=== PATIENT | female | born 1990 | race Caucasian/White ===

== ENCOUNTER 2019-06-27 11:37 | Emergency (ER) | payer OTHER, BC, SELFPAY ==
[2019-06-27 11:46] VITALS: BP 150/87; PULSE 142; RESP 20; TEMP 36.2; O2SAT 100
--- NOTE | 2019-06-27 12:24 | ED.SKABFB ---
HPI - Skin/Abscess/Foreign Bdy General Stated complaint: Cat bite Time Seen by Provider: 06/27/19 12:24 Source: patient and RN notes reviewed Mode of arrival: ambulatory Limitations: no limitations Related Data Allergies Allergy/AdvReac Type Severity Reaction Status Date / Time No Known Allergies Allergy Unverified 09/06/18 10:18 Review of Systems Review of Systems: All systems reviewed & are unremarkable except as noted in HPI and below PMFSH Comments At time of signature, agree with nursing past medical, surgical, social and family history. There is no relevant family history pertinent to the presenting complaint Course Course Emergency Course: Patient is aware of diagnosis, understands and agrees to treatment plan. Anticipatory guidance given. Patient agrees to follow-up as directed and is aware of reasons to seek care at the emergency department. Portions of this record may have been created with voice recognition software Vital Signs Vital signs: Vital Signs Temperature 97.1 F L 06/27/19 11:46 Pulse Rate 142 H 06/27/19 11:46 Respiratory Rate 20 06/27/19 11:46 Blood Pressure 150/87 H 06/27/19 11:46 Pulse Oximetry 100 06/27/19 11:46 Temperature 97.1 F L 06/27/19 11:46 Pulse Rate 142 H 06/27/19 11:46 Respiratory Rate 20 06/27/19 11:46 Blood Pressure 150/87 H 06/27/19 11:46 Pulse Oximetry 100 06/27/19 11:46 Reviewed. Critical Care Time Critical Care Time Critical Care Time: No Discharge Plan Discharge Additional Instructions: Clean wound twice daily with soap and water, use antibiotic ointment twice daily. Cover as necessary until wound heals. Take antibiotic as directed. If symptoms worsen or do not improve after 24 to 36 hours on antibiotic, follow-up with your primary care provider. If having urgent concerns please go the emergency room. Follow-up/Referrals: UNKNOWN,DOCTOR [Primary Care Provider] -
--- NOTE | 2019-06-27 12:26 | ED.ANIMALBIT ---
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 Reports cat was up-to-date on vaccinations. Reports puncture wound to the second digit of her right hand. Denies any erythema, drainage, induration. MD complaint: animal bite Related Data Allergies Allergy/AdvReac Type Severity Reaction Status Date / Time No Known Allergies Allergy Verified 06/27/19 12:31 Review of Systems Review of Systems: Narrative: CONSTITUTIONAL: Denies malaise, chills, sweats, or fever. CARDIOVASCULAR: Denies chest pain, palpitations, or edema. SKIN: Reports puncture wounds to second digit of right hand MUSCULOSKELETAL: Denies decreased range of motion, joint pain NEUROLOGIC: Denies numbness, weakness. All systems reviewed & are unremarkable except as noted in HPI and below PMFSH Comments At time of signature, agree with nursing past medical, surgical, social and family history. There is no relevant family history pertinent to the presenting complaint Exam Narrative: Exam Narrative: GENERAL: Well-appearing, well-nourished, and in no acute distress. HEAD: Normocephalic. EYES: PERRLA, conjunctivae clear NECK: Supple. CHEST: Speaks in full sentences. No respiratory distress. HEART: Regular rate and rhythm. Normal and equal peripheral pulses. EXTREMITIES: Right hand and digits of hand have normal strength and sensation. 5/5 strength with digit flexion, extension. Range of motion normal. No clubbing, cyanosis, or edema noted. No tenderness. Normal digital cascade with flexion of fingers, median, ulnar and radial nerve intact. Normal sensation of each side of finger. Can perform 'okay' sign, 'cross over finger test of index and middle fingers' and 'thumbs up' sign. No scissoring. Normal thumb opposition. Good capillary refill and radial pulse. Distal capillary refill <3 seconds. NEURO: Alert and oriented x3. 2 puncture wounds noted to the second digit of right hand, above the PIP joint PSYCH: Normal mood and affect Course Course Emergency Course: Patient is aware of diagnosis, understands and agrees to treatment plan. Anticipatory guidance given. Patient agrees to follow-up as directed and is aware of reasons to seek care at the emergency department. Portions of this record may have been created with voice recognition software Vital Signs Vital signs: Vital Signs Temperature 97.1 F L 06/27/19 11:46 Pulse Rate 142 H 06/27/19 11:46 Respiratory Rate 20 06/27/19 11:46 Blood Pressure 150/87 H 06/27/19 11:46 Pulse Oximetry 100 06/27/19 11:46 Temperature 97.1 F L 06/27/19 11:46 Pulse Rate 142 H 06/27/19 11:46 Respiratory Rate 20 06/27/19 11:46 Blood Pressure 150/87 H 06/27/19 11:46 Pulse Oximetry 100 06/27/19 11:46 Reviewed. Patient has been instructed to follow up with her primary care provider within the next week regarding her elevated blood pressure today. MDM - Animal Bite MDM Narrative Medical decision making narrative: Exam findings show no acute concerns or changes; patient is non-toxic appearing and is in no distress. Patient is appropriate for outpatient treatment and follow-up. Differential Diagnosis Differential diagnosis: Likely bite by animal, cat bite and rabies contact Critical Care Time Critical Care Time Critical Care Time: No Discharge Plan Discharge Clinical Impression: Cat bite of finger Qualifiers: Encounter type: initial encounter Qualified Code(s): S61.259A - Open bite of unspecified finger without damage to nail, initial encounter Patient Disposition: Home, Self-Care Condition: Stable Instructions: Antibiotic Form, Animal Bite (ED) Additional Instructions:
== END 2019-06-27 12:38 | disposition home or self-care (01) ==
PROVIDERS: Emergency Provider Nurse Practitioner
DX: S61.250A Open bite of right index finger without damage to nail, initial encounter (principal); R03.0 Elevated blood-pressure reading, without diagnosis of hypertension; W55.01XA Bitten by cat, initial encounter
CPT/HCPCS: 99213; G0463

== ENCOUNTER 2021-07-08 11:31 | Emergency (ER) | payer BC, SELFPAY ==
--- NOTE | 2021-07-08 11:35 | ED.URI ---
HPI - URI/Sore Throat General Chief Complaint: Upper Respiratory Infection Stated Complaint: cough fever Time Seen by Provider: 07/08/21 11:35 Source: patient and RN notes reviewed History of Present Illness HPI Narrative: Patient is a 30-year-old female who presents the urgent care with complaints of cough, fever, sore throat, congestion and chills and sweats with right ear pain. Patient states that started approximately 3 to 4 days ago and she has been taking DayQuil. Patient denies of any known exposures to COVID, strep or influenza but states that her coworkers have been in and out due to illness. No other acute complaints. No acute distress noted. Patient aware of the plan of care. Some parts of this dictation were generated by voice recognition software and may contain typographical and/or grammatical inaccuracies. Related Data Home Medications Medication Instructions Recorded Confirmed aripiprazole 15 mg tablet 1 tablet PO DAILY 07/08/21 07/08/21 budesonide-formoterol HFA 80 1 inh inhalation DAILY 07/08/21 07/08/21 mcg-4.5 mcg/actuation aerosol inhaler (Symbicort) bupropion HCl 150 mg 24 hr tablet, 1 tablet PO DAILY 07/08/21 07/08/21 extended release escitalopram oxalate 10 mg tablet 1 tablet PO HS 07/08/21 07/08/21 hydroxyzine pamoate 50 mg capsule 1 cap PO TID 07/08/21 07/08/21 norgestimate 0.25 mg-ethinyl 1 tablet PO DAILY 07/08/21 07/08/21 estradiol 35 mcg tablet (Estarylla) prazosin 1 mg capsule 5 cap PO DAILY 07/08/21 07/08/21 Allergies Allergy/AdvReac Type Severity Reaction Status Date / Time No Known Allergies Allergy Verified 07/08/21 11:48 Review of Systems Review of Systems: CONSTITUTIONAL: Reports of hot flashes and chills with fatigue EYES: Denies visual changes, redness, or discharge. ENT: Reports of sinus congestion, right otalgia, sore throat, postnasal drainage CARDIOVASCULAR: Denies chest pain, palpitations, or edema. RESPIRATORY: Reports of cough with intermittent wheezing without dyspnea GASTROINTESTINAL: Denies abdominal pain, nausea, vomiting, or diarrhea. GENITOURINARY: Denies dysuria or hematuria. SKIN: Denies rash or itching. MUSCULOSKELETAL: Denies back pain, joint pain, or myalgia. NEUROLOGIC: Denies headache, numbness, or weakness. All other systems reviewed are negative, except as documented in HPI. PMFSH Comments At the time of my signature, I reviewed and agree with the nursing past medical, surgical, social, and family history. There is no relevant family history pertinent to the patient complaint. Exam Narrative: GENERAL: This is a well-nourished, well-developed patient, in no apparent distress. HEAD: normocephalic, atraumatic. EYES: PERRL. Sclera clear/white. Vision is grossly intact. EARS: External ears normal, auditory canals clear and without drainage, mild bilateral effusions without otitis, TMs normal without perforation. Hearing grossly intact. NOSE: External nose normal with no obvious nasal discharge, nares without redness, clear to yellow rhinorrhea. THROAT: Mucous membranes moist, posterior pharynx clear. Moderate postnasal drainage NECK: Neck supple CARDIOVASCULAR: Regular rate and rhythm without murmurs, gallops, or rubs. RESPIRATORY: Inspiratory and expiratory wheezes SKIN: warm, intact with no suspicious lesions or rash, good texture and turgor. NEURO: awake, alert, and oriented to person, place and time. There were no obvious focal neurologic abnormalities. EXTREMITIES: No clubbing, cyanosis, or edema. Course Course Level of Care: Express Care Visit Vital Signs Vital signs: Vital Signs Temperature 98 F 07/08/21 11:37 Pulse Rate 100 07/08/21 11:37 Respiratory Rate 07/08/21 11:37 Blood Pressure 144/69 H 07/08/21 11:37 Pulse Oximetry 99 07/08/21 11:37 Oxygen Delivery Room Air 07/08/21 11:37 Temperature 98 F 07/08/21 11:37 Pulse Rate 100 07/08/21 11:37 Respiratory Rate 07/08/21 11:37 Blood Pressure 144/6
[2021-07-08 11:37] VITALS: BP 144/69; PULSE 100; RESP 20; TEMP 36.6; O2SAT 99
== END 2021-07-08 12:10 | disposition home or self-care (01) ==
PROVIDERS: Emergency Provider Nurse Practitioner Family
DX: B34.9 Viral infection, unspecified (principal); R06.2 Wheezing; Z20.822 Contact with and (suspected) exposure to COVID-19; F41.9 Anxiety disorder, unspecified; F32.A Depression, unspecified
CPT/HCPCS: 87426; 87804; 99213; C9803; G0463

== ENCOUNTER 2022-06-01 12:44 | Emergency (ER) | payer BC, SELFPAY ==
[2022-06-01 12:48] VITALS: BP 126/70; PULSE 71; RESP 20; TEMP 36.6; O2SAT 97
--- NOTE | 2022-06-01 12:58 | ED.GENADULT ---
HPI - General Adult General Chief complaint: Nausea/Vomiting/Diarrhea Stated complaint: nausea diarrhea Time Seen by Provider: 06/01/22 12:58 Source: patient, RN notes reviewed and old records reviewed Mode of arrival: ambulatory Limitations: no limitations History of Present Illness HPI narrative: 31 year old female who presents to [facility] care with complaints of awakening this morning and developing nausea with vomiting with emesis X4 prior to arrival in clinic and diarrhea stool X1. Patient has some mild mid abdominal discomfort, aching that comes in waves. Patient reports no fevers, chills or sweats and denies any body aches. Patient denies any known ill contacts. Patient has drank some water and has kept fluids down has not eaten any solid foods. MD complaint: nausea and vomiting diarrhea starting today. Onset (ago): hour(s) (this morning) Location: abdomen (mid abdomen) Severity: mild Severity scale (1-10): 3 Pain Consistency: intermittent Treatments prior to arrival: none Related Data Home Medications Medication Instructions Recorded Confirmed aripiprazole 15 mg tablet 1 tablet PO DAILY 07/08/21 06/01/22 budesonide-formoterol HFA 80 1 inh inhalation DAILY 07/08/21 06/01/22 mcg-4.5 mcg/actuation aerosol inhaler (Symbicort) bupropion HCl 150 mg 24 hr tablet, 1 tablet PO DAILY 07/08/21 06/01/22 extended release escitalopram oxalate 10 mg tablet 1 tablet PO HS 07/08/21 06/01/22 hydroxyzine pamoate 50 mg capsule 1 cap PO TID 07/08/21 06/01/22 norgestimate 0.25 mg-ethinyl 1 tablet PO DAILY 07/08/21 06/01/22 estradiol 35 mcg tablet (Estarylla) prazosin 1 mg capsule 5 cap PO DAILY 07/08/21 06/01/22 Allergies Allergy/AdvReac Type Severity Reaction Status Date / Time No Known Allergies Allergy Verified 07/08/21 11:48 Review of Systems Review of Systems: CONSTITUTIONAL: Denies fever, chills, or sweats. EYES: Denies visual changes, redness, or discharge. ENT: Denies rhinorrhea, congestion, sore throat, or otalgia. CARDIOVASCULAR: Denies chest pain, palpitations, or edema. RESPIRATORY: Denies cough or dyspnea. GASTROINTESTINAL: Denies any acute abdominal pain,positive for nausea, vomiting, or diarrhea. GENITOURINARY: Denies dysuria or hematuria. SKIN: Denies rash or itching. MUSCULOSKELETAL: Denies back pain, joint pain, or myalgia. NEUROLOGIC: Denies headache, numbness, or weakness. PSYCHIATRIC: Positive for history of anxiety or depression. All systems reviewed & are unremarkable except as noted in HPI and below PMFSH Past Medical History Medical History (Updated 06/02/22 @ 15:40 by Cynthia Ledesma NP) Ankle fracture, right Anxiety and depression Asthma Bipolar 1 disorder, mixed Eczema Fracture of left wrist Pneumonia 04/2016 Surgical History Surgical History (Updated 06/02/22 @ 15:37 by Cynthia Ledesma NP) H/O arthroscopic knee surgery History of tonsillectomy Social History Social History (Updated 06/02/22 @ 15:41 by Cynthia Ledesma NP) Smoking status: Former smoker Additional smoking assessment comments: quit 2018 smoked 3 years Alcohol intake: current Alcohol use details: rare social Substance use: current Substance use type: marijuana Gender identity (if verbalized by the patient): Female Comments At time of signature, agree with nursing past medical, surgical, social and family history. There is no relevant family history pertinent to the presenting complaint Exam Narrative: GENERAL: Well-appearing, well-nourished, and in no acute distress. HEAD: Normocephalic, atraumatic. EYES: PERRLA and EOMI. ENT: Nares clear, no rhinorrhea or epistaxis. Mucous membranes moist.TM's normal with good light reflex, throat pink with no swelling NECK: Supple.no lymphadenopathy CHEST: Clear to auscultation. No respiratory distress.SAO2 97% on room air HEART: Regular rate and rhythm. No murmur heard. Normal peripheral pulses. ABDOMEN: Soft, nontender on palpation, no McBu
== END 2022-06-01 13:19 | disposition home or self-care (01) ==
PROVIDERS: Emergency Provider Registered Nurse
DX: K52.9 Noninfective gastroenteritis and colitis, unspecified (principal); Z87.891 Personal history of nicotine dependence; J45.909 Unspecified asthma, uncomplicated; F41.9 Anxiety disorder, unspecified; F32.A Depression, unspecified
CPT/HCPCS: 99213; G0463

== ENCOUNTER 2022-06-20 11:51 | Emergency (ER) | payer BC, SELFPAY ==
--- NOTE | 2022-06-20 11:57 | ED.HA ---
HPI - Headache General Chief Complaint: Headache Stated Complaint: Headache Source: patient and RN notes reviewed History of Present Illness HPI Narrative: 31-year-old female presents to urgent care complaints of a migraine. Patient states she woke up with this migraine and feels like a typical migraine for her. States her migraine is located behind her eyes bilaterally. Patient reports associated photophobia as well as mild nausea. Patient states she took 800 mg of ibuprofen this morning which took her headache pain down to a 4/10 on the pain scale from an 8 out of 10. Patient denies any fevers, chills, numbness, tingling neck pain, vomiting, chest pain, or sound sensitivity. Patient noted to be wheezing on exam states is normal for her. Patient agrees to take her inhaler when she gets home. Related Data Home Medications Medication Instructions Recorded Confirmed aripiprazole 15 mg tablet 1 tablet PO DAILY 07/08/21 06/20/22 bupropion HCl 150 mg 24 hr tablet, 1 tablet PO DAILY 07/08/21 06/20/22 extended release escitalopram oxalate 10 mg tablet 1 tablet PO HS 07/08/21 06/20/22 hydroxyzine pamoate 50 mg capsule 1 cap PO TID 07/08/21 06/20/22 prazosin 1 mg capsule 5 cap PO DAILY 07/08/21 06/20/22 Allergies Allergy/AdvReac Type Severity Reaction Status Date / Time No Known Allergies Allergy Verified 07/08/21 11:48 Review of Systems Review of Systems: Pertinent positives and pertinent negatives per HPI. [facility] Past Medical History Medical History (Updated 06/20/22 @ 12:07 by Iris Chew APRN) Ankle fracture, right Anxiety and depression Asthma Bipolar 1 disorder, mixed Eczema Fracture of left wrist Pneumonia 04/2016 Surgical History Surgical History (Updated 06/02/22 @ 15:37 by Cynthia Ledesma NP) H/O arthroscopic knee surgery History of tonsillectomy Social History Social History (Updated 06/02/22 @ 15:41 by Cynthia Ledesma NP) Smoking status: Former smoker Additional smoking assessment comments: quit 2018 smoked 3 years Alcohol intake: current Alcohol use details: rare social Substance use: current Substance use type: marijuana Gender identity (if verbalized by the patient): Female Comments At the time of my signature, I reviewed and agree with the nursing past medical, surgical, social, and family history. There is no relevant family history pertinent to the patient complaint. Exam Narrative: GENERAL: This is a well-nourished, well-developed patient, in no apparent distress. HEAD: normocephalic, atraumatic. EYES: Sclera clear/white. Vision is grossly intact. EARS: External ears normal, auditory canals clear and without drainage. Hearing grossly intact. NOSE: External nose normal with no obvious nasal discharge, nares without redness, no rhinorrhea. THROAT: Mucous membranes moist, posterior pharynx clear. NECK: Neck supple, non-tender without lymphadenopathy, masses or thyromegaly. CARDIOVASCULAR: Regular rate and rhythm without murmurs, gallops, or rubs. RESPIRATORY: Mild wheezing throughout auscultation. Patient states is normal for her. SKIN: warm, intact with no suspicious lesions or rash, good texture and turgor. NEURO: awake, alert, and oriented to person, place and time. There were no obvious focal neurologic abnormalities. Course Course Level of Care: Express Care Visit Vital Signs Vital signs: Vital Signs Temperature 97.3 F L 06/20/22 11:58 Pulse Rate 92 06/20/22 11:58 Respiratory Rate 20 06/20/22 11:58 Blood Pressure 134/60 06/20/22 11:58 Pulse Oximetry 97 06/20/22 11:58 Oxygen Delivery Room Air 06/20/22 11:58 Temperature 97.3 F L 06/20/22 11:58 Pulse Rate 92 06/20/22 11:58 Respiratory Rate 20 06/20/22 11:58 Blood Pressure 134/60 06/20/22 11:58 Pulse Oximetry 97 06/20/22 11:58 Oxygen Delivery Room Air 06/20/22 11:58 reviewed MDM - Headache MDM Narrative Medical decision making narrative:
[2022-06-20 11:58] VITALS: BP 134/60; PULSE 92; RESP 20; TEMP 36.3; O2SAT 97
== END 2022-06-20 12:14 | disposition home or self-care (01) ==
PROVIDERS: Emergency Provider Nurse Practitioner Family
DX: G43.909 Migraine, unspecified, not intractable, without status migrainosus (principal); Z87.891 Personal history of nicotine dependence; J45.909 Unspecified asthma, uncomplicated; F41.9 Anxiety disorder, unspecified; F32.A Depression, unspecified
CPT/HCPCS: 99213; G0463

== ENCOUNTER 2022-07-20 11:29 | Emergency (ER) | payer BC, SELFPAY ==
[2022-07-20 11:45] VITALS: BP 137/78; PULSE 70; RESP 18; TEMP 36.3; O2SAT 97
--- NOTE | 2022-07-20 12:02 | ED.GENADULT ---
HPI - General Adult General Chief complaint: Nausea/Vomiting/Diarrhea Stated complaint: Vomiting/Diarrhea Time Seen by Provider: 07/20/22 12:02 Source: patient, RN notes reviewed and old records reviewed Mode of arrival: ambulatory Limitations: no limitations History of Present Illness HPI narrative: 31-year-old female presents to the [facility] with vomiting and diarrhea that was sudden onset at 4:00 a.m. this morning. States that she is having cramping of her abdomen. The the nausea, vomiting and diarrhea woke her up out of her sleep. States she has had a couple of episodes of both, states that she is feeling better, needs a work. States that she had ?too much? buffalo chicken dip Onset (ago): hour(s) (8) Related Data Home Medications Medication Instructions Recorded Confirmed aripiprazole 15 mg tablet 1 tablet PO DAILY 07/08/21 07/20/22 bupropion HCl 150 mg 24 hr tablet, 1 tablet PO DAILY 07/08/21 07/20/22 extended release escitalopram oxalate 10 mg tablet 1 tablet PO HS 07/08/21 07/20/22 hydroxyzine pamoate 50 mg capsule 1 cap PO TID 07/08/21 07/20/22 prazosin 1 mg capsule 5 cap PO DAILY 07/08/21 07/20/22 norgestimate 0.25 mg-ethinyl See Rx Instructions .Route .COMPLEX 07/20/22 07/20/22 estradiol 35 mcg tablet (Estarylla) propranolol 60 mg capsule,24 50 mg PO DAILY 07/20/22 07/20/22 hr,extended release Allergies Allergy/AdvReac Type Severity Reaction Status Date / Time No Known Allergies Allergy Verified 07/20/22 11:49 Review of Systems Review of Systems: All systems reviewed & are unremarkable except as noted in HPI and below Constitutional: Constitutional: Reports no additional constitutional complaints Eyes: Eyes: Reports no additional eye complaints ENT: Reports system reviewed and no additional complaints, except as documented Cardiovascular: Cardiovascular: Reports no additional cardiovascular complaints, Denies chest pain and Denies dyspnea Respiratory: Respiratory: Reports no additional respiratory complaints, Denies chest congestion, Denies cough and Denies dyspnea Gastrointestinal: Gastrointestinal: Reports as per HPI, Denies abdominal pain, Reports diarrhea, Reports nausea and Reports vomiting Musculoskeletal: Musculoskeletal: Reports no additional musculoskeletal complaints Integumentary/Breasts: Skin/Breast: Reports system reviewed and no additional complaints, except as docu Neurologic: Reports system reviewed and no additional complaints, except as documented Psychiatric: Psychiatric: Reports no additional psychiatric complaints Allergic/Immunologic: Allergic/Immunologic: Reports no additional allergic/immunologic complaints PMFSH Past Medical History Medical History Ankle fracture, right Anxiety and depression Asthma Bipolar 1 disorder, mixed Eczema Fracture of left wrist Pneumonia 04/2016 Surgical History Surgical History H/O arthroscopic knee surgery History of tonsillectomy Social History Social History Smoking status: Former smoker Additional smoking assessment comments: quit 2018 smoked 3 years Alcohol intake: current Alcohol use details: rare social Substance use: current Substance use type: marijuana Gender identity (if verbalized by the patient): Female Comments At the time of my signature, I reviewed and agree with the nursing past medical, surgical, social, and family history. There is no relevant family history pertinent to the patient complaint. Exam Const: General: cooperative, healthy appearing, comfortable, no acute distress, well developed, alert and well nourished Nutritional Appearance: well nourished and obese Orientation/consciousness: patient oriented x3 Limitations: no limitations HENMT: Head: normal to inspection Ears: hearing grossly normal bilaterally and e
== END 2022-07-20 12:20 | disposition home or self-care (01) ==
PROVIDERS: Emergency Provider Nurse Practitioner
DX: R11.2 Nausea with vomiting, unspecified (principal); R19.7 Diarrhea, unspecified; J45.909 Unspecified asthma, uncomplicated; Z87.891 Personal history of nicotine dependence; F41.9 Anxiety disorder, unspecified; F32.A Depression, unspecified
CPT/HCPCS: 99213; G0463

== ENCOUNTER 2022-07-31 11:50 | Emergency (ER) | payer BC, SELFPAY ==
[2022-07-31 11:54] VITALS: BP 152/55; PULSE 66; RESP 20; TEMP 36.6; O2SAT 97
--- NOTE | 2022-07-31 11:59 | ED.NAVMDI ---
HPI - Nausea/Vomiting/Diarrhea General Chief complaint: Nausea/Vomiting/Diarrhea Stated complaint: Vomiting History of Present Illness HPI Narrative: PATIENT PRESENTS WITH NAUSEA VOMITING AND DIARRHEA. PATIENT WAS HERE ON 07/20/2022 WITH SAME SYMPTOMS AND STATES SYMPTOMS DID RESOLVE SINCE THAT EPISODE. PATIENT REPORTS EATING MORE CHOCOLATE THE NORMAL A COUPLE DAYS AGO AND THINKS THAT COULD HAVE STARTED HER NAUSEA VOMITING AND DIARRHEA. PATIENT STATES SHE DID MISS WORK AND NEEDS A WORK NOTE. Related Data Home Medications Medication Instructions Recorded Confirmed aripiprazole 15 mg tablet 1 tablet PO DAILY 07/08/21 07/20/22 bupropion HCl 150 mg 24 hr tablet, 1 tablet PO DAILY 07/08/21 07/20/22 extended release escitalopram oxalate 10 mg tablet 1 tablet PO HS 07/08/21 07/20/22 hydroxyzine pamoate 50 mg capsule 1 cap PO TID 07/08/21 07/20/22 prazosin 1 mg capsule 5 cap PO DAILY 07/08/21 07/20/22 norgestimate 0.25 mg-ethinyl See Rx Instructions .Route .COMPLEX 07/20/22 07/20/22 estradiol 35 mcg tablet (Estarylla) propranolol 60 mg capsule,24 50 mg PO DAILY 07/20/22 07/20/22 hr,extended release Allergies Allergy/AdvReac Type Severity Reaction Status Date / Time No Known Allergies Allergy Verified 07/20/22 11:49 Review of Systems Review of Systems: CONSTITUTIONAL: DENIES FEVER, CHILLS, OR SWEATS. EYES: DENIES VISUAL CHANGES, REDNESS, OR DISCHARGE. ENT: DENIES RHINORRHEA, CONGESTION, SORE THROAT, OR OTALGIA. CARDIOVASCULAR: DENIES CHEST PAIN, PALPITATIONS, OR EDEMA. RESPIRATORY: DENIES COUGH OR DYSPNEA. GASTROINTESTINAL: DENIES ABDOMINAL PAIN, NAUSEA, VOMITING, OR DIARRHEA. GENITOURINARY: DENIES DYSURIA OR HEMATURIA. SKIN: DENIES RASH OR ITCHING. MUSCULOSKELETAL: DENIES BACK PAIN, JOINT PAIN, OR MYALGIA. NEUROLOGIC: DENIES HEADACHE, NUMBNESS, OR WEAKNESS. PSYCHIATRIC: DENIES ANXIETY OR DEPRESSION. [facility] Past Medical History Medical History Ankle fracture, right Anxiety and depression Asthma Bipolar 1 disorder, mixed Eczema Fracture of left wrist Pneumonia 04/2016 Surgical History Surgical History H/O arthroscopic knee surgery History of tonsillectomy Social History Social History Smoking status: Former smoker Additional smoking assessment comments: quit 2018 smoked 3 years Alcohol intake: current Alcohol use details: rare social Substance use: current Substance use type: marijuana Gender identity (if verbalized by the patient): Female Comments AT TIME OF SIGNATURE, AGREE WITH NURSING PAST MEDICAL, SURGICAL, SOCIAL AND FAMILY HISTORY. THERE IS NO RELEVANT FAMILY HISTORY PERTINENT TO THE PRESENTING COMPLAINT Exam Narrative: GENERAL: WELL-APPEARING, WELL-NOURISHED, AND IN NO ACUTE DISTRESS. HEAD: NORMOCEPHALIC, ATRAUMATIC. EYES: PERRLA AND EOMI. ENT: NARES CLEAR, NO RHINORRHEA OR EPISTAXIS. MUCOUS MEMBRANES MOIST. NECK: SUPPLE. CHEST: CLEAR TO AUSCULTATION. NO RESPIRATORY DISTRESS. HEART: REGULAR RATE AND RHYTHM. NO MURMUR HEARD. NORMAL PERIPHERAL PULSES. ABDOMEN: SOFT, NONTENDER, NONDISTENDED, NORMAL ACTIVE BOWEL SOUNDS. EXTREMITIES: NORMAL RANGE OF MOTION. NO EDEMA. SKIN: WARM, DRY, NO RASH. NEURO: NO FOCAL DEFICITS. ALERT AND ORIENTED X3. SHAN COMA SCALE EYE OPENING: SPONTANEOUS 4 SHAN COMA SCALE MOTOR: OBEYS COMMANDS 6 SHAN COMA SCALE VERBAL: ORIENTED 5 SHAN COMA SCALE TOTAL 15 Course Course Level of Care: Express Care Visit Vital Signs Vital signs: PLEASE DANIEL SCHEDULE A FOLLOWUP VISIT WITH YOUR PERSONAL PHYSICIAN FOR FURTHER EVALUATION AND TREATMENT. INCLUDING RECHECK AND DISCUSSION OF YOUR BLOOD PRESSURE. IF YOUR SYMPTOMS PERSIST, CHANGE OR WORSEN SIGNIFICANTLY BEFORE YOU CAN CONTACT YOUR PERSONAL PHYSICIAN THEN PLEASE, WITHOUT DELAY, GO TO THE EMERGENCY DEPARTMENT FOR FURTHER EVALUATION
== END 2022-07-31 12:09 | disposition home or self-care (01) ==
PROVIDERS: Emergency Provider Nurse Practitioner Family
DX: R11.2 Nausea with vomiting, unspecified (principal); R19.7 Diarrhea, unspecified; Z87.891 Personal history of nicotine dependence; J45.909 Unspecified asthma, uncomplicated; F41.9 Anxiety disorder, unspecified; F32.A Depression, unspecified
CPT/HCPCS: 99213; G0463

== ENCOUNTER 2023-11-20 08:18 | Emergency (ER) | payer BC, SELFPAY ==
[2023-11-20 08:25] VITALS: BP 128/66; PULSE 87; RESP 20; TEMP 36.8; O2SAT 99
--- NOTE | 2023-11-20 08:38 | ED.NAVMDI ---
HPI - Nausea/Vomiting/Diarrhea General Chief complaint: Nausea/Vomiting/Diarrhea Stated complaint: vomitting/diarrhea Source: patient and RN notes reviewed Mode of arrival: ambulatory Limitations: no limitations History of Present Illness HPI Narrative: 32 y/o female with hx asthma presented for c/o 5 episodes of vomiting and 2 episodes diarrhea since 0100. Endorses abdominal cramping but says she feels better than onset. Ate a frozen pizza for dinner at 8pm. Denies fever or hematochezia/melena. Endorses some coworkers have had GI bug. Denies any concern for at this time, LMP 2 weeks ago. States she has not been using her prescribed inhaler and has more wheezing but denies sob. Related Data Home Medications Medication Instructions Recorded Confirmed aripiprazole 15 mg tablet 1 tablet PO QHS 07/08/21 11/20/23 bupropion HCl 150 mg 24 hr tablet, 1 tablet PO DAILY 07/08/21 11/20/23 extended release hydroxyzine pamoate 50 mg capsule 1 cap PO TID PRN Anxiety 07/08/21 11/20/23 prazosin 1 mg capsule 5 cap PO DAILY 07/08/21 11/20/23 norgestimate 0.25 mg-ethinyl 1 tablet PO DAILY 07/20/22 11/20/23 estradiol 35 mcg tablet (Estarylla) budesonide-formoterol HFA 160 2 puff inhalation BID 11/20/23 11/20/23 mcg-4.5 mcg/actuation aerosol inhaler (Symbicort) escitalopram oxalate 20 mg tablet 20 mg PO QHS 11/20/23 11/20/23 oxybutynin chloride 5 mg 5 mg PO DAILY 11/20/23 11/20/23 tablet,extended release 24 hr Allergies Allergy/AdvReac Type Severity Reaction Status Date / Time No Known Allergies Allergy Verified 11/20/23 08:38 Review of Systems Review of Systems: CONSTITUTIONAL: Denies body aches, fever, chills ENT: Denies rhinorrhea, congestion CARDIOVASCULAR: Denies chest pain, palpitations, or edema. RESPIRATORY: Denies cough or dyspnea. GASTROINTESTINAL: Endorses abdominal cramping, nausea, vomiting, diarrhea. Denies hematochezia, melena, hematemesis SKIN: Denies rash, itching, or wounds. MUSCULOSKELETAL: Denies back pain, joint pain, or myalgia. NEUROLOGIC: Denies headache All systems reviewed & are unremarkable except as noted in HPI and below PMFSH Past Medical History Medical History Ankle fracture, right Anxiety and depression Asthma Bipolar 1 disorder, mixed Eczema Fracture of left wrist Pneumonia 04/2016 Surgical History Surgical History H/O arthroscopic knee surgery History of tonsillectomy Social History Social History Smoking status: Former smoker Additional smoking assessment comments: quit 2018 smoked 3 years Alcohol intake: current Alcohol use details: rare social Substance use: current Substance use type: marijuana Gender identity (if verbalized by the patient): Female Comments At time of signature, I have reviewed and agree with nursing past medical, surgical, social and family history unless otherwise noted. Please see nursing chart for further information. There is no relevant family history pertinent to the presenting complaint Exam Narrative: GENERAL: Well-appearing, and in no acute distress. EYES: EOMI. Conjunctivae normal. ENT: Mucous membranes pink and moist. CHEST: No respiratory distress. Clear to auscultation. HEART: Regular rate and rhythm. No murmur appreciated. Normal peripheral pulses. ABDOMEN: abd soft, nondistended, normal active bowel sounds. minimally tender abdomen, generalized; No guarding, rebound tenderness, asymmetry SKIN: Warm, dry, no rash. Capillary refill normal. Normal skin turgor. NEURO: No focal deficits. Alert and oriented x3. PSYCH: Normal affect. Course Course Emergency Course: Patient is aware of diagnosis, understands and agrees to treatment plan. Anticipatory guidance given. Patient agrees to follow-up as directed and is aware of reason
== END 2023-11-20 08:55 | disposition home or self-care (01) ==
PROVIDERS: Emergency Provider Nurse Practitioner Family
DX: R11.2 Nausea with vomiting, unspecified (principal); R19.7 Diarrhea, unspecified; Z87.891 Personal history of nicotine dependence; J45.909 Unspecified asthma, uncomplicated; F41.9 Anxiety disorder, unspecified; F32.A Depression, unspecified
CPT/HCPCS: 99213; G0463